=== PATIENT | female | born 1945 | race Hispanic/Latino ===

== ENCOUNTER 2017-05-14 06:16 | Day surgery (SDC) | payer MEDICARE, BC ==
[2017-05-07 11:40] VITALS: BMI 20.5
[2017-05-14] MEDS ORDERED: Lidocaine 1% Inj (20ml) IJ ONE (06:47)
[2017-05-14] MEDS ORDERED: ceFAZolin 2 GM in Sodium Chloride 0.9% 100 ML IVPB ONE (06:47)
--- NOTE | 2017-05-14 06:47 | CP.SDSHP ---
Same Day Surgery H & P - History Proposed Procedure: right foot bunionectomy and 2nd hammertoe toe correction with Spencer osteotomy Pre-Op Diagnosis: painful bunion, 2nd hammertoe, and 2nd metatarsalagia, all on the right foot - Allergies Allergies: Allergies dust Allergy (Uncoded 04/02/16 15:13) SHORTNESS OF BREATH - Physical Exam Mental Status: Alert & Oriented x3 - {Optional Preform as Required} Integument: WNL - Impression Impression: Pt was seen and examined in SDS. Pt NPO status was confirmed. All pre-op testing and clearance in chart. Pt has exhausted all conservative treatment at this time and is opting for surgical intervention. Pt was explained procedure and post-operative course. All pt's questions were answered to satisfaction. No guarantees were made. Pt understands all risks, benefits and complications of procedure. Pt will follow-up with Dr. Cesar within 1 week of surgery - Date & Time Date: 05/14/17 Time: 08:00 Short Stay Discharge - Short Stay Discharge Admitting Diagnosis/Reason for Visit: M20.41/ M20.11/ Disposition: HOME/ ROUTINE Referrals: Doc Pace MD [Primary Care Provider] - Instructions: RICE Therapy (GEN) Additional Instructions (Diet, Activity): -Patient in good/stable condition for discharge home -Pt to resume medications per medical reconciliation -Resume regular diet Please keep dressing clean, dry, & intact to surgical site -Use plastic bag over bandage for showering -Wear post op shoe at all times when ambulating -Call clinic if you see signs of infection (redness, swelling, malodor) -Please make an appointment to see Dr. Cesar in office/clinic within 1 week for post-op check Progress Note/Discharge Note with Instructions: - Patient evaluated bedside in recovery s/p surgical procedure. - After surgical procedure patient in NAD - (+) Void, (+) Appetite - Capillary refill time <3s and NVSI intact. - Patient denies complaints at this time - Post operative instructions and plan of care explained to patient at length. - Pt. acknowledges understanding. - Patient stable for DC per podiatric surgery
--- NOTE | 2017-05-14 06:47 | CP.PCM.PN ---
Subjective - Date & Time of Evaluation Date of Evaluation: 05/14/17 Time of Evaluation: 06:54 - Subjective Subjective: Podiatry Perioperative Evaluation- Dr. Cesar 71 y.o female seen and evaluated in [facility] for right foot bunionectomy and 2nd hammertoe toe correction with Spencer. Patient reports the 2nd toe is bothering her and causing her pain. Its worse when she is wearing or ambulating in shoes. She also notes that her bunion is slowly shifting over to the 2nd digit which is causing more pain to the toe. All conservative treatment has been exhausted and now patient opts for surgical intervention. Patient reports nothing to eat since 8 pm last night and last drank liquids at 11:30 pm last night. She reports having allergies to dust mite. She denies n/v/sob/cp/chills or f. PMH: hx of TIA, hx of left wrist fracture PSH: tonsillectomy, adenoids removal, vitrectomy, left 5th metatarsal ORIF ALL: dust mites MEDS: NAC supplement, Cerefolin SH: reports drinking wine with dinner, denies illict drug use, denies smoking Objective - Vital Signs/Intake and Output Vital Signs (last 24 hours): Temp Pulse Resp BP Pulse Ox 97.9 F 70 20 137/86 100 05/07/17 11:29 05/07/17 11:29 05/07/17 11:29 05/07/17 11:29 05/07/17 11:29 - Constitutional Appears: Well, Non-toxic, No Acute Distress - Extremities Exam Extremities Exam: absent: Calf Tenderness Additional comments: Vasc: DP and PT 2/4 bilaterally, temperature gradient warm to cool b/l, CFT < 3 seconds x 10 digits, no edema noted to the foot b/l Neuro: protective and gross sensation intact bilaterally Derm: erythema noted to the distal tip of 2nd digit, dorsum of 2nd digit at DIPJ , PIPF, and medial eminence of 1st mpj; Mild bursa noted to the medial aspect of the medial eminence of 1st mpj. no open lesions, no clinical signs of infection. Ortho: Patient has decreased ankle joint ROM. Ankle joint dorsiflexion b/l < 10 degrees with knee extended, L>R. Ankle joint dorsiflexion >10 degrees with the left knee flexed. Ankle joint dorsiflexion <10 degrees with the right knee flexed. Negative anterior drawer test. Negative talar tilt. Muscle strength is 5 /5 b/l for all dorsiflexors, plantarfexors, inverters, and everters without pain. STJ ROM is full B/L with 20 degrees inversion and 10 degrees eversion. LLE RCSP is 4 degrees everted with NCSP 0 degrees. RLE RCSP 6 degrees everted with NCSP 0 degrees. ROM of MTJ is normal without pain or crepitus b/l. The forefoot is perpendicular to the rearfoot. First ray ROM is WNL b/l. 1st MPJ ROM is 50 degrees without pain or crepitus b/l. Medial eminence noted to first metatarsal. Mild pain with palpation to the medial eminence. Left foot 5th metatarsal lateral eminence noted with tenderness to palpation. Semi-rigid hammertoe deformity noted to left 2nd digit. Extensors contracture noted to all digits, elongated 2nd digit. Pain with palpation of sub metatarsal 2. - Neurological Exam Neurological Exam: Alert, Awake, Oriented x3 - Psychiatric Exam Psychiatric exam: Normal Affect, Normal Mood Assessment and Plan - Assessment and Plan (Free Text) Assessment: 71 y.o female seen and evaluated in [facility] for right foot bunionectomy and 2nd hammertoe toe correction with Spencer. Plan: Pt was seen and examined in [facility] Pt NPO status was confirmed All Pre-op testing and clearance was in the chart Pt has exhausted all conservative treatment at this time and is opting for surgical intervention Pt was explained procedure and post-operative course All pt's questions were answered to satisfaction No guarantees were made Pt understands all risks, benefits and complications of procedure Pt will follow-up with Dr. Cesar
[2017-05-14] MEDS ORDERED: ceFAZolin IV 2 gm in Dextrose 2 GM/50 ML BAG IVPB ONE (07:00)
[2017-05-14] MEDS ORDERED: Lidocaine 1% Inj (20ml) ONE (07:28)
[2017-05-14] MEDS ORDERED: Dexamethasone 4 mg/1 ml ONE (07:28)
[2017-05-14] MEDS ORDERED: Propofol 10 mg/ml Inj (20 ML) ONE (07:49)
[2017-05-14] MEDS ORDERED: Midazolam 2 MG/2 ML VIAL ONE (07:49)
[2017-05-14] MEDS: Bupivacaine 0.5% Inj(30mL) ONE ×2 (08:05→10:00)
[2017-05-14] MEDS ORDERED: Lactated Ringer's 1,000 ML IV ONE ×3 (08:45→11:50)
[2017-05-14] MEDS ORDERED: ePHEDrine 50 mg/ml Inj ONE (08:46)
[2017-05-14] MEDS ORDERED: Oxycodone/Acetaminophen 5/325 mg Tab PO PRN ×2 (10:10)
--- NOTE | 2017-05-14 10:17 | PCM.SURG1 ---
Surgeon's Initial Post Op Note - Surgeon's Notes Surgeon: Dr. Cesar DPM [employer] Winder: Dr. Melvin DPM Type of Anesthesia: General LMA Anesthesia Administered By: Dr. Pinedo Pre-Operative Diagnosis: right painful bunion, right painful 2nd hammertoe, 2nd metatarsalgia Operative Findings: see dictations; injectables: 20 cc of 1% lidocaine plain; intra-operative: 10 cc of .5% marcaine plain; materials: 3-0, 4-0 vicryl, 4-0 nylon, 1 staple speed implant [id number], 2 orthosorb 40x1.3mm, 1 2.0 x 11 snap off screw Post-Operative Diagnosis: same Operation Performed: 1st right Gerald with internal fixation, right 1st proximal Rk with internal fixation, right 2nd wilian osteotomy with internal fixation Specimen/Specimens Removed: none Estimated Blood Loss: EBL {In ML}: 0 Blood Products Given: N/A Drains Used: No Drains Post-Op Condition: Good Date of Surgery/Procedure: 05/14/17 Time of Surgery/Procedure: 07:45
[2017-05-14] MEDS ORDERED: Lactated Ringer's 1,000 ML IV SCH (11:15)
[2017-05-14 11:18] VITALS: RESP 18
[2017-05-14 12:02] VITALS: O2SAT 97
[2017-05-14 13:31] VITALS: BP 139/78; PULSE 76; TEMP 97.6
--- NOTE | 2017-05-17 07:50 | OP ---
PROCEDURE DATE: 05/14/2017 SURGEON: Marino Cesar DPM. FREELANCE PATTERNMAKER: Jasmyn Melvin DPM, PGY-2. TYPE OF ANESTHESIA: General LMA. ANESTHESIA ADMINISTERED BY: Shad Pinedo MD. PREOPERATIVE DIAGNOSES: 1. Right foot painful hallux abductovalgus deformity. 2. Right foot second elongated and plantarflexed metatarsal. POSTOPERATIVE DIAGNOSES: 1. Right foot painful hallux abductovalgus deformity. 2. Right foot second elongated and plantarflexed metatarsal. PROCEDURE: 1. Right foot surgical repair of hallux abductovalgus deformity with first metatarsal and phalangeal osteotomies with the use of internal fixation. 2. Right foot second metatarsal osteotomy with the use of internal fixation. INDICATIONS: The patient is a 71-year-old female with the above-mentioned diagnoses. The patient has exhausted multiple forms of conservative treatment at this time and now requests surgical intervention. The patient signed the consent after careful explanation of risks, benefits, complications and alternatives for surgical procedure, no guarantees were given or implied. DESCRIPTION OF PROCEDURE: The patient was brought into the operating room and placed on the operating room table in a supine position. A timeout was performed for identification of the correct patient and procedure. The patient received a total of 20 mL of 1% lidocaine plain in a local block-type fashion to the right foot. Once local and general anesthesia was achieved, the foot was then prepped and draped in normal sterile manner. The patient's foot was elevated and the pneumatic ankle tourniquet was then inflated to 250 mmHg and the procedure began. PROCEDURE #1: Attention was directed to the dorsal aspect of the first metatarsal head of the right foot where an approximately 5-cm linear longitudinal incision was made medial and parallel to the tendon of the extensor hallucis longus involving the contour of the deformity. The incision was deepened through subcutaneous tissue using sharp and blunt dissection. Care had been taken to identify and retract all vital and neurovascular structures. All bleeders were cauterized and ligated as necessary. Attention was then directed to the first inner space via the original incision where the tendon of the extensor hallucis brevis was identified and tenectomized. The conjoint tendon of the abductor hallucis muscle was then identified and transected at its attachments to the base of proximal phalanx and of the hallux. At this time, the lateral contracture present at the hallux was noted to be reduced. At this time, an inverted L-type capsulotomy was performed over the dorsal aspect of the first metatarsophalangeal joint. Periosteal and capsular structures were then carefully dissected free of their osseous attachments and reflected medially and laterally, thus exposing the head of the first metatarsal into the operative filed. Next, utilizing a sagittal bone saw, the dorsal and medial were resected and passed from the operating field. All rough edges were then smoothed down with a bone rasp. Attention was then redirected to the medial aspect of the first metatarsal head where a [id number] V-type osteotomy was created in the metaphyseal region of the bone utilizing a sagittal bone saw. The apex of the osteotomy pointed distally with the arm plane proximal plantar and proximal dorsal. The dorsal arm was made longer to accommodate for internal fixation. Upon completion of the osteotomy, the capital fragment was distracted and shifted laterally into a more corrected position and impacted upon the first metatarsal head. At this time, a 0.045 inch K-wire was driven from dorsal to plantar across the osteotomy site to serve as temporary fixation. Following sequential removal of the K-wires and following standard AO principles and technique, two Orthosorb pins measuring 20 mm x 1.3 mm each were inserted in their place across the osteotomy site with excellent compression noted. Attention was then redirected to the remaining medial bone shelves, which were resected utilizing a sagittal bone saw and passed off the operative field. Correction of the deformity was noted and assessed at this time and noted to be excellent. Next, the long extensor tendon was then lengthened in a V-type manner via the original incision. The periosteal and capsular structures were then reflected medially and laterally exposing the base of the proximal phalanx of the operative site. Next, utilizing a sagittal bone saw, dorsal to plantar proximal osteotomy was created in the proximal phalanx of the right hallux. A wedge of bone was resected and passed from the operative site. Following standard AO principles and techniques, a 9 mm x 10 mm staple was inserted and placed across the osteotomy site with excellent compression noted. The surgical site was then flushed with copious amounts of sterile normal saline. The periosteal and capsular structures were then reapproximated using 3-0 Vicryl. The subcutaneous tissue was then reapproximated using 4-0 Vicryl and the skin was reapproximated with 4-0 nylon. PROCEDURE #2: Right foot second metatarsal osteotomy with screw fixation. Attention was then drawn to the second metatarsophalangeal joint where a 3-cm linear longitudinal incision was made dorsal to the second metatarsophalangeal joint. The incision was carried down to planes paying careful attention to all neurovascular structures that were retracted, ligated, and cauterized as necessary. The incision was deepened down to the level of the long extensor tendon. The long extensor tendon was identified and retracted laterally. Attention was then drawn to the capsular and periosteal tissue where a sharp periosteal and capsular incision was created being careful not to score the articular cartilage of the second metatarsal head. The periosteal tissue was then sharply reflected from the areas to expose the head and neck of the second metatarsal. At this time, with the use of a sagittal saw, a type osteotomy was crated at the second metatarsal starting from the most proximal portion of the articular cartilage, the dorsal aspect of second metatarsal and an oblique cut was made staying parallel to the weightbearing surface and a [id number]-[id number]-dxegdba osteotomy was created. The capital fragment was transposed proximally. It was palpated and noted to be consistent with a normal parabola. This permanently fixated with a 2.0 x 11 mm cortical snap-off screw using standard AO technique. The osteotomy was noted to be in good anatomic alignment. Postoperative contraction was noted. There was no postoperative contracture at this time and the correction of the deformity was noted to be excellent. The subcutaneous incision was then reapproximated with 3-0 and 4-0 Vicryl and the skin was reapproximated with 4-0 nylon. A postoperative block including 10 mL of 0.5% Marcaine plain was given in a local block-type fashion to the right foot. The surgical sites were then dressed with Xeroform, 4 x 4 gauze, Kerlix, Fernando, and BRISA bandage. POSTOPERATIVE CONDITION: The patient tolerated the anesthesia and procedure well and was escorted to the recovery room with vital signs stable and neurovascular status intact to the right foot. The patent will follow up with Dr. Cesar on an outpatient basis. Jasmyn Melvin DPM Marino Cesar DPM [facility] # [id number]
== END 2017-05-14 13:48 | disposition home or self-care (01) ==
LOC: H.OPSURG 06:16
PROVIDERS: ATTEND Podiatrist Foot & Ankle Surgery
DX: M20.41 Other hammer toe(s) (acquired), right foot (principal); M20.11 Hallux valgus (acquired), right foot
CPT/HCPCS: 28296; 88304; 97116; 97161; G8978; G8979; G8980; J0690; J2001; J2250; J2704; J3010; J7120